=== PATIENT | female | born 1970 | race Caucasian/White ===

== ENCOUNTER 2023-03-24 10:31 | Outpatient (CLI) | payer OTHER | END 2023-03-24 10:34 | disposition home or self-care (01) | LOC: SONOGRAMA 10:31 | PROVIDERS: ATTEND Pathology Anatomic Pathology & Clinical Pathology | DX: D34 Benign neoplasm of thyroid gland (principal); E07.9 Disorder of thyroid, unspecified; E04.9 Nontoxic goiter, unspecified; E06.3 Autoimmune thyroiditis ==